=== PATIENT | female | born 1965 | race Caucasian/White ===

== ENCOUNTER 2024-02-26 10:30 | Outpatient (CLI) | payer BC | END 2024-02-26 10:31 | disposition home or self-care (01) | LOC: CSHSLEEP 10:30 | PROVIDERS: ATTEND Family Medicine | DX: G47.33 Obstructive sleep apnea (adult) (pediatric) (principal); R09.89 Other specified symptoms and signs involving the circulatory and respiratory systems; E66.9 Obesity, unspecified; Z68.36 Body mass index [BMI] 36.0-36.9, adult; R06.83 Snoring; R35.1 Nocturia | CPT/HCPCS: 95810 ==

== ENCOUNTER 2024-12-19 13:39 | Outpatient (CLI) | payer BC | END 2024-12-19 13:40 | disposition home or self-care (01) | LOC: CSHMAMMO 13:39 | PROVIDERS: ATTEND Family Medicine | DX: Z12.31 Encounter for screening mammogram for malignant neoplasm of breast (principal) | CPT/HCPCS: 77063; 77067 ==